=== PATIENT | female | born 1980 | race Caucasian/White ===

== ENCOUNTER 2018-06-01 11:26 | Emergency (ER) | payer MEDICAID ==
[2018-06-01] MEDS ORDERED: SODIUM CHLORIDE 0.9% 1000ML 1,000 ML IV ONE (12:19)
[2018-06-01] MEDS ORDERED: ONDANSETRON HCL 4 MG/2 ML VIAL ONE (12:19)
[2018-06-01 12:30] LABS: BASOPHILS % (AUTO) 0.4 % (0.0-5.0); EOSINOPHILS % (AUTO) 0.1 % (0.0-8.0); HEMATOCRIT 46.9 % (36-48); LYMPHOCYTES % (AUTO) 4.5 % (21.0-51.0); MEAN CORPUSCULAR HEMOGLOBIN 25.6 pg (27.0-33.0); MEAN CORPUSCULAR HGB CONC 32.7 g/dL (32.0-36.0); MEAN CORPUSCULAR VOLUME 78.2 fL (79-99); MONOCYTES % (AUTO) 2.8 % (3.0-13.0); NEUTROPHILS % (AUTO) 92.2 % (40.0-77.0); PLATELET COUNT (AUTO) 285 K/uL (130-400); RED BLOOD CELL COUNT(AUTO) 5.99 MIL/uL (4.00-5.50); RED CELL DISTRIBUTION WIDTH 14.9 % (11.0-15.5)
[2018-06-01 12:31] LABS: HCG,QUAL RESULT NEGATIVE (NEGATIVE)
[2018-06-01 12:32] LABS: APPEARANCE,URINE Clear (CLEAR); BILIRUBIN,URINE Negative (NEGATIVE); COLOR,URINE Yellow (YELLOW); GLUCOSE, URINE (UA) >=1000 mg/dL (NEGATIVE); KETONES,URINE >=80 mg/dL (NEGATIVE); LEUKOCYTE ESTERASE ,URINE Negative (NEGATIVE); NITRATE,URINE Negative (NEGATIVE); OCCULT BLOOD,URINE Small (NEGATIVE); PROTEIN,URINE 300 (NEGATIVE); UROBILINOGEN,URINE 0.2 mg/dL (0.2-1.0)
[2018-06-01 12:38] LABS: RBC,URINE 0-1 /HPF (0-1)
[2018-06-01 12:39] LABS: BACTERIA,URINE Rare /HPF (None Seen)
[2018-06-01 12:40] LABS: SQUAMOUS EPITHELIAL CELL,UR Rare /HPF (0-2)
[2018-06-01 12:46] LABS: ALBUMIN 2.8 g/dL (3.5-5.0); BILIRUBIN,TOTAL 0.5 mg/dL (0.2-1.0); CREATININE 0.8 mg/dL (0.5-1.5); TOTAL PROTEIN, SERUM 7.2 g/dL (6.0-8.3)
[2018-06-01] MEDS ORDERED: KETOROLAC TROMETHAMINE 30MG/ML ONE (12:46)
[2018-06-01] MEDS ORDERED: HYDROMORPHONE 1 MG/1 ML AMP ONE (13:48)
== END 2018-06-01 14:42 | disposition home or self-care (01) ==
LOC: EDH 11:26
DX: N39.0 Urinary tract infection, site not specified (principal); R10.30 Lower abdominal pain, unspecified; E11.65 Type 2 diabetes mellitus with hyperglycemia; Z79.4 Long term (current) use of insulin; Z88.6 Allergy status to analgesic agent; Z88.5 Allergy status to narcotic agent; Z88.0 Allergy status to penicillin; Z88.2 Allergy status to sulfonamides; Z88.8 Allergy status to other drugs, medicaments and biological substances
CPT/HCPCS: 36415; 74176; 80053; 81001; 81025; 85025; 96361; 96374; 96375; 99285; J1170; J1885; J2405; J7030

== ENCOUNTER 2018-09-20 05:43 | Observation (INO) | payer MEDICAID ==
[2018-09-19 16:54] VITALS: BP 121/68
[2018-09-19 16:56] LABS: BASOPHILS % (AUTO) 0.6 % (0.0-5.0); EOSINOPHILS % (AUTO) 3.2 % (0.0-8.0); HEMATOCRIT 42.3 % (36-48); LYMPHOCYTES % (AUTO) 24.4 % (21.0-51.0); MEAN CORPUSCULAR HEMOGLOBIN 25.7 pg (27.0-33.0); MEAN CORPUSCULAR HGB CONC 32.8 g/dL (32.0-36.0); MEAN CORPUSCULAR VOLUME 78.3 fL (79-99); MONOCYTES % (AUTO) 5.9 % (3.0-13.0); NEUTROPHILS % (AUTO) 65.9 % (40.0-77.0); PLATELET COUNT (AUTO) 241 K/uL (130-400); RED CELL DISTRIBUTION WIDTH 14.5 % (11.0-15.5); WHITE BLOOD COUNT (AUTO) 6.8 K/uL (4.8-10.8)
[2018-09-19 17:22] LABS: CREATININE 0.5 mg/dL (0.5-1.5); POTASSIUM 3.7 mmol/L (3.5-5.1)
[~2018-09-20] VITALS: Ht 149.9 cm; Wt 76.8 kg
[2018-09-20] VITALS (23 sets, daily range): BP systolic 99–150; BP diastolic 57–102
[~2018-09-20 05:43] MED LIST: INSLAN SQ; INSNOV SQ; INSU100C6 SQ
[2018-09-20] MEDS ORDERED: SODIUM CHLORIDE 0.9% 1000ML 1,000 ML IV ONE (06:27)
[2018-09-20] MEDS ORDERED: CLINDAMYCIN 600 MG/D5% WATER 50 ML IV ONE (06:27)
[2018-09-20] MEDS ORDERED: LEVOFLOXACIN 500 MG/D5W 100 ML 100 ML ONE (06:46)
[2018-09-20] MEDS: LEVOFLOXACIN 500 MG/D5W 100 ML 100 ML IV PRN ×2 (06:47→07:52)
--- NOTE | 2018-09-20 06:48 | NUR ---
VALUABLES: CLOTHING,, ONE WHITE COLOR COATED NECKLACE, INSULIN PUMP, LANTUS, NOVOLOG, GLASSES AND CELL PHONE GIVEN TO SPOUSE.
[2018-09-20] MEDS ORDERED: SUCCINYLCHOLINE 200MG/10ML SYR ONE (07:33)
[2018-09-20] MEDS ORDERED: ONDANSETRON HCL 4 MG/2 ML VIAL ONE ×2 (07:33→10:31)
[2018-09-20] MEDS ORDERED: LIDOCAINE PF 2% 5ML ABBOJECT ONE ×2 (07:33→07:36)
[2018-09-20] MEDS ORDERED: DEXAMETHASONE SOD PHOSPHATE 10MG/ML 1ML VIAL ONE (07:34)
[2018-09-20] MEDS ORDERED: MIDAZOLAM HCL 1 MG/ML 2ML VIAL ONE (07:34)
[2018-09-20] MEDS ORDERED: FENTANYL CITRATE PF 50 MCG/1 ML 2ML VIAL ONE ×3 (07:34→08:28)
[2018-09-20] MEDS ORDERED: NEOSTIGMINE 5MG/5ML SYR IV ONE ×2 (07:34→09:46)
[2018-09-20] MEDS ORDERED: ROCURONIUM 10MG/1ML SYR 10 MG/ML ML ONE (07:34)
[2018-09-20] MEDS ORDERED: PROPOFOL 10 MG/ML 20ML VIAL IV ONE (07:34)
[2018-09-20] MEDS ORDERED: GLYCOPYRROLATE 1 MG/5 ML SYRINGE ONE ×2 (07:34→10:00)
[2018-09-20] MEDS ORDERED: CLINDAMYCIN 600 MG/D5% WATER 50 ML IV PRN (08:00)
[2018-09-20] MEDS ORDERED: INSULIN HUMULIN R 100 UNIT/ML 3ML ONE (08:35)
[2018-09-20] MEDS ORDERED: PHENYLEPHRINE HCL 10 MG/ML 1ML VIAL IV ONE (09:02)
[2018-09-20] MEDS ORDERED: MEPERIDINE-PF 25 MG/ML SYG ONE (10:36)
[2018-09-20] MEDS ORDERED: METOCLOPRAMIDE 10 MG/2 ML VIAL ONE (10:42)
[2018-09-20] MEDS ORDERED: MEPERIDINE-PF 75 MG/ML SYG ONE (11:12)
[2018-09-20] MEDS ORDERED: IBUPROFEN 600 MG TABLET ONE (11:14)
[2018-09-20] MEDS ORDERED: IBUPROFEN 600 MG TABLET PO PRN (11:15)
[2018-09-20] MEDS ORDERED: DOCUSATE SODIUM 100 MG CAP PO PRN (11:15)
[2018-09-20] MEDS ORDERED: BISACODYL 10 MG SUPP.RECT RC PRN (11:15)
[2018-09-20] MEDS ORDERED: IBUPROFEN 100 MG/5 ML SUSP UDCUP ONE (11:22)
[2018-09-20] MEDS: INSULIN HUMULIN R 100 UNIT/ML 3ML SQ SCH ×3 (12:17→21:00)
[2018-09-20] MEDS ORDERED: HYDROMORPHONE HCL 0.5 MG/0.5 ML ML IVP ONE (13:30)
[2018-09-20] MEDS: HYDROMORPHONE HCL 0.5 MG/0.5 ML ML IVP PRN ×2 (13:35→14:08)
[2018-09-20] MEDS: MEPERIDINE-PF 75 MG/ML SYG IM PRN ×2 (14:59→22:23)
[2018-09-20] MEDS: ONDANSETRON HCL 4 MG/2 ML VIAL IVP PRN ×2 (16:21→22:17)
[2018-09-20] MEDS: SODIUM CHLORIDE 0.9% 1000ML 1,000 ML IV SCH (18:53)
[2018-09-20] MEDS: IBUPROFEN 100 MG/5 ML SUSP UDCUP PO PRN (19:04)
[2018-09-21] MEDS: MEPERIDINE-PF 75 MG/ML SYG IM PRN (01:28)
[2018-09-21] MEDS: SIMETHICONE 80 MG TAB.CHEW PO PRN ×2 (01:28→07:59)
[2018-09-21] MEDS: SODIUM CHLORIDE 0.9% 1000ML 1,000 ML IV SCH (02:37)
[2018-09-21] MEDS ORDERED: IBUPROFEN 100 MG/5 ML SUSP UDCUP PO PRN (03:45)
[2018-09-21 03:57] VITALS: BP 101/63
[2018-09-21] MEDS ORDERED: MEPERIDINE-PF 25 MG/ML SYG ONE (05:36)
[2018-09-21] MEDS ORDERED: MEPERIDINE-PF 50 MG/ML SYG ONE (05:36)
[2018-09-21] MEDS: ONDANSETRON HCL 4 MG/2 ML VIAL IVP PRN (05:41)
[2018-09-21 05:42] LABS: HEMATOCRIT 37.8 % (36-48); MEAN CORPUSCULAR HEMOGLOBIN 26.2 pg (27.0-33.0); MEAN CORPUSCULAR VOLUME 79.4 fL (79-99); PLATELET COUNT (AUTO) 185 K/uL (130-400); RED BLOOD CELL COUNT(AUTO) 4.77 MIL/uL (4.00-5.50); RED CELL DISTRIBUTION WIDTH 14.5 % (11.0-15.5); WHITE BLOOD COUNT (AUTO) 9.2 K/uL (4.8-10.8)
[2018-09-21] MEDS: INSULIN HUMULIN R 100 UNIT/ML 3ML SQ SCH ×2 (06:37→11:30)
[2018-09-21 07:08] VITALS: BP 103/64
[2018-09-21] MEDS ORDERED: HYDROCODONE/ACETAMINOPHEN 5/325 MG TAB PO PRN (07:45)
--- NOTE | 2018-09-21 08:20 | NUR ---
ROUNDS DR. ACEVEDO ROUNDING ON PATIENT. DISCHARGE POC DISCUSSED. QUESTIONS INVITED AND ANSWERED.
[2018-09-21 11:35] VITALS: BP 111/64
[2018-09-21] MEDS: IBUPROFEN 100 MG/5 ML SUSP UDCUP PO PRN (11:39)
--- NOTE | 2018-09-21 13:25 | NUR ---
DISCHARGE INSTRUCTIONS INSTRUCTIONS READ AND EXPLAINED TO PATIENT. PRESCRIPTION FOR PERCOCET AND MOTRIN 800MG HANDED TO PATIENT. QUESTIONS INVITED AND ANSWERED.
--- NOTE | 2018-09-21 13:40 | NUR ---
DISCHARGE PATIENT LEFT UNIT VIA WHEELCHAIR ACCOMPANIED BY . BELONGINGS IN HAND. PERSONAL VEHICLE USED FOR TRANSPORTATION.
== END 2018-09-21 13:40 | disposition home or self-care (01) ==
LOC: DAH 05:43 → WSH 05:44
PROVIDERS: ADMIT Obstetrics & Gynecology; ATTEND Obstetrics & Gynecology
DX: N92.1 Excessive and frequent menstruation with irregular cycle (principal); N73.6 Female pelvic peritoneal adhesions (postinfective); K66.8 Other specified disorders of peritoneum; N94.10 Unspecified dyspareunia; N94.6 Dysmenorrhea, unspecified; G89.29 Other chronic pain; N85.2 Hypertrophy of uterus; R10.2 Pelvic and perineal pain
CPT/HCPCS: 36415 ×2; 58552; 80048; 82948 ×8; 84702; 85025; 85027; 86850; 86900; 86901; 88307; 96372 ×2; 96374; 96375; 96376 ×3; A4215; A4351; A4510; A4600; A4649 ×3; A4930; C1769; G0378 ×32; J0330; J1100; J1170 ×3; J1815 ×3; J1956; J2001 ×2; J2175 ×7; J2250; J2370; J2405 ×5; J2704; J2710 ×2; J2765; J3010 ×3; J3490 ×3; J7030 ×4

== ENCOUNTER 2019-01-07 21:03 | Emergency (ER) | payer MEDICAID ==
[~2019-01-07 21:03] MED LIST changes: -INSLAN SQ; -INSNOV SQ; -INSU100C6 SQ; +INSU100I3 SQ; +INSU3INS3 SQ; +[UNRECOGNIZED DRUG - CODE] MC
[2019-01-07 21:55] LABS: BASOPHILS % (AUTO) 0.8 % (0.0-5.0); EOSINOPHILS % (AUTO) 2.8 % (0.0-8.0); HEMATOCRIT 43.2 % (36-48); LYMPHOCYTES % (AUTO) 18.5 % (21.0-51.0); MEAN CORPUSCULAR HGB CONC 33.3 g/dL (32.0-36.0); MEAN CORPUSCULAR VOLUME 77.9 fL (79-99); MONOCYTES % (AUTO) 3.6 % (3.0-13.0); NEUTROPHILS % (AUTO) 74.3 % (40.0-77.0); PLATELET COUNT (AUTO) 274 K/uL (130-400); RED BLOOD CELL COUNT(AUTO) 5.54 MIL/uL (4.00-5.50); RED CELL DISTRIBUTION WIDTH 15.2 % (11.0-15.5)
[2019-01-07] MEDS ORDERED: DIAZEPAM 5 MG TABLET ONE (21:59)
[2019-01-07 22:06] LABS: CREATININE 1.3 mg/dL (0.5-1.5); POTASSIUM 3.8 mmol/L (3.5-5.1)
[2019-01-07] MEDS ORDERED: METOCLOPRAMIDE 10 MG/2 ML VIAL ONE (23:06)
== END 2019-01-07 23:58 | disposition home or self-care (01) ==
LOC: EDH 21:03
DX: R51 Headache (principal); R29.810 Facial weakness; E11.9 Type 2 diabetes mellitus without complications; Z79.4 Long term (current) use of insulin; Z87.442 Personal history of urinary calculi; Z90.49 Acquired absence of other specified parts of digestive tract; Z90.710 Acquired absence of both cervix and uterus; Z87.891 Personal history of nicotine dependence; Z88.0 Allergy status to penicillin; Z88.5 Allergy status to narcotic agent; Z88.8 Allergy status to other drugs, medicaments and biological substances; Z88.6 Allergy status to analgesic agent
CPT/HCPCS: 36415; 70450; 80048; 84484; 85025; 93005; 96374; 99285; J2765

== ENCOUNTER 2019-01-22 19:57 | Emergency (ER) | payer MEDICAID ==
[2019-01-22] MEDS ORDERED: CEFTRIAXONE SODIUM 1 GM ONE (20:38)
[2019-01-22 20:54] LABS: BASOPHILS % (AUTO) 0.9 % (0.0-5.0); EOSINOPHILS % (AUTO) 0.1 % (0.0-8.0); HEMATOCRIT 42.1 % (36-48); LYMPHOCYTES % (AUTO) 4.8 % (21.0-51.0); MEAN CORPUSCULAR VOLUME 78.9 fL (79-99); MONOCYTES % (AUTO) 4.7 % (3.0-13.0); NEUTROPHILS % (AUTO) 89.5 % (40.0-77.0); NUCLEATED RED BLOOD CELLS 0.1 % (0.0-0.19); PLATELET COUNT (AUTO) 221 K/uL (130-400); RED BLOOD CELL COUNT(AUTO) 5.33 MIL/uL (4.00-5.50); RED CELL DISTRIBUTION WIDTH 15.8 % (11.0-15.5); WHITE BLOOD COUNT (AUTO) 10.8 K/uL (4.8-10.8)
[2019-01-22 21:02] LABS: INR 0.97 (0.85-1.15); PARTIAL THROMBOPLASTIN TIME 26.6 SEC (26.3-35.5); PROTHROMBIN TIME 10.2 SEC (9.6-11.6)
[2019-01-22 21:19] LABS: ALANINE AMINOTRANSFERASE 26 U/L (12-78); ALBUMIN 2.6 g/dL (3.5-5.0); ASPARTATE AMINOTRANSFERASE 10 U/L (10-37); BILIRUBIN,TOTAL 0.5 mg/dL (0.2-1.0); CARBON DIOXIDE 20 mmol/L (21-32); CHLORIDE 97 mmol/L (101-111); CREATINE KINASE, TOTAL 23 U/L (21-232); GLOMERULAR FILTR. RATE CALC 66 mL/min (>60); MYOGLOBIN 24 ng/mL (10-92); POTASSIUM 3.6 mmol/L (3.5-5.1); SODIUM SERUM 131 mmol/L (136-145); TROPONIN I < 0.04 ng/mL (0.00-0.06); UREA NITROGEN, BLOOD 12 mg/dL (7-18)
[2019-01-22 21:29] LABS: GLUCOSE,RANDOM 424 mg/dL (70-105)
[2019-01-22 21:37] LABS: APPEARANCE,URINE Clear (CLEAR); BILIRUBIN,URINE Negative (NEGATIVE); COLOR,URINE Yellow (YELLOW); GLUCOSE, URINE (UA) >=1000 mg/dL (NEGATIVE); KETONES,URINE 40 mg/dL (NEGATIVE); LEUKOCYTE ESTERASE ,URINE Negative (NEGATIVE); NITRATE,URINE Negative (NEGATIVE); OCCULT BLOOD,URINE Trace (NEGATIVE); PH,URINE 5.5 (5.0-8.0); PROTEIN,URINE 300 mg/dL (NEGATIVE); UROBILINOGEN,URINE 0.2 mg/dL (0.2-1.0)
[2019-01-22 21:37] LABS: BAND NEUTROPHILS % (MANUAL) 29 % (0-2); BASOPHILS % (MANUAL) 1 % (0-2); EOSINOPHILS % (MANUAL) 1 % (1-6); LYMPHOCYTES % (MANUAL) 6 % (22-44); MAN.DIFF COMMENT-IMPRESSION MANUAL DIFFERENTIAL; MONOCYTES % (MANUAL) 4 % (2-9); REACTIVE LYMPHOCYTES 4 % (0-0); SEGMENTED NEUTROPHILS % 55 % (40-70)
[2019-01-22 21:38] LABS: PLATELET MORPHOLOGY COMMENT ADEQUATE
[2019-01-22 21:40] LABS: HCG,QUAL RESULT NEGATIVE (NEGATIVE)
[2019-01-22 21:45] LABS: AMPHET/METH SCREEN,URINE NEGATIVE (NEGATIVE); BARBITURATE SCREEN, URINE NEGATIVE (NEGATIVE); BENZODIAZEPINES SCREEN,URINE NEGATIVE (NEGATIVE); CANNABINOID SCREEN,URINE NEGATIVE (NEGATIVE); COCAINE SCREEN,URINE NEGATIVE (NEGATIVE); OPIATE SCREEN,URINE NEGATIVE (NEGATIVE); PHENCYCLIDINE SCREEN,URINE NEGATIVE (NEGATIVE)
[2019-01-22] MEDS ORDERED: ACETAMINOPHEN EXTRA STRENGTH 500 MG TABLET ONE (21:50)
[2019-01-22 22:19] LABS: BASE EXCESS,VENOUS BLOOD GAS -6.3 (-2.0-3.0); HCO3,VENOUS BLOOD GAS 15.4 (21.0-28.0); PCO2,VENOUS BLOOD GAS 23 (32-45); PH,VENOUS BLOOD GAS 7.451 (7.350-7.450)
[2019-01-22 22:22] LABS: BACTERIA,URINE Few /HPF (None Seen); RBC,URINE None Seen /HPF (0-1)
[2019-01-22] MEDS ORDERED: INSULIN HUMULIN R 100 UNIT/ML 3ML ONE (23:21)
== END 2019-01-23 00:02 | disposition home or self-care (01) ==
LOC: EDH 19:57
DX: J10.1 Influenza due to other identified influenza virus with other respiratory manifestations (principal); E10.65 Type 1 diabetes mellitus with hyperglycemia; Z88.6 Allergy status to analgesic agent; Z88.0 Allergy status to penicillin; Z88.8 Allergy status to other drugs, medicaments and biological substances; Z88.1 Allergy status to other antibiotic agents; Z90.49 Acquired absence of other specified parts of digestive tract; Z90.710 Acquired absence of both cervix and uterus; Z87.891 Personal history of nicotine dependence
CPT/HCPCS: 36415; 36600; 71045; 80053; 80305; 81001; 81003; 81025; 82550; 82803; 82948; 83605; 83874; 84484; 85025; 85610; 85730; 87040; 87088; 87804 ×2; 93005; 96361; 96374; 96375; 99285; J0696; J1815

== ENCOUNTER → 2019-02-21 | Outpatient (CLI) | payer MEDICAID | END | disposition home or self-care (01) | LOC: RAH 12:26 | PROVIDERS: ATTEND Family Medicine | DX: S14.109A Unspecified injury at unspecified level of cervical spinal cord, initial encounter (principal); M47.817 Spondylosis without myelopathy or radiculopathy, lumbosacral region; X58.XXXA Exposure to other specified factors, initial encounter; Y93.89 Activity, other specified; Y92.89 Other specified places as the place of occurrence of the external cause; Y99.8 Other external cause status; Z90.49 Acquired absence of other specified parts of digestive tract | CPT/HCPCS: 72100 ==

== ENCOUNTER 2020-02-20 16:10 | Emergency (ER) | payer MEDICAID, OTHER ==
[2020-02-20] MEDS ORDERED: HYDROCODONE/ACETAMINOPHEN 10/325 MG TAB ONE (16:28)
== END 2020-02-20 18:20 | disposition home or self-care (01) ==
LOC: EDH 16:10
DX: S40.012A Contusion of left shoulder, initial encounter (principal); S20.222A Contusion of left back wall of thorax, initial encounter; E11.9 Type 2 diabetes mellitus without complications; Z88.6 Allergy status to analgesic agent; Z88.5 Allergy status to narcotic agent; Z88.0 Allergy status to penicillin; Z88.1 Allergy status to other antibiotic agents; Z88.8 Allergy status to other drugs, medicaments and biological substances; W20.8XXA Other cause of strike by thrown, projected or falling object, initial encounter; Y93.89 Activity, other specified; Y92.812 Truck as the place of occurrence of the external cause; Y99.8 Other external cause status
CPT/HCPCS: 71101; 73030

== ENCOUNTER 2020-04-14 16:48 | Emergency (ER) | payer SELFPAY ==
[2020-04-14] MEDS ORDERED: ONDANSETRON ODT 4 MG TAB ONE (17:22)
[2020-04-14] MEDS ORDERED: HYDROCODONE/ACETAMINOPHEN 10/325 MG TAB ONE (17:25)
[2020-04-14 17:33] LABS: BASOPHILS % (AUTO) 0.3 % (0.0-5.0); EOSINOPHILS % (AUTO) 3.6 % (0.0-8.0); LYMPHOCYTES % (AUTO) 22.8 % (21.0-51.0); MEAN CORPUSCULAR HEMOGLOBIN 27.5 pg (27.0-33.0); MEAN CORPUSCULAR HGB CONC 33.1 g/dL (32.0-36.0); MEAN CORPUSCULAR VOLUME 83.2 fL (79-99); MONOCYTES % (AUTO) 4.5 % (3.0-13.0); NEUTROPHILS % (AUTO) 68.4 % (40.0-77.0); PLATELET COUNT (AUTO) 281 K/uL (130-400); RED BLOOD CELL COUNT(AUTO) 4.69 MIL/uL (4.00-5.50); RED CELL DISTRIBUTION WIDTH 16.1 % (11.0-15.5); WHITE BLOOD COUNT (AUTO) 6.9 K/uL (4.8-10.8)
[2020-04-14 17:42] LABS: CREATININE 0.9 mg/dL (0.5-1.5); POTASSIUM 3.9 mmol/L (3.5-5.1)
[2020-04-14 17:47] LABS: ALBUMIN 2.8 g/dL (3.5-5.0); BILIRUBIN,TOTAL 0.4 mg/dL (0.2-1.0); TOTAL PROTEIN, SERUM 6.8 g/dL (6.0-8.3)
[2020-04-14 17:56] LABS: INR 0.91 (0.85-1.15); PARTIAL THROMBOPLASTIN TIME 24.5 SEC (26.3-35.5); PROTHROMBIN TIME 9.9 SEC (9.6-11.6)
[2020-04-14] MEDS ORDERED: KETOROLAC TROMETHAMINE 30MG/ML ONE (18:48)
== END 2020-04-14 19:05 | disposition home or self-care (01) ==
LOC: EDH 16:48
DX: M79.652 Pain in left thigh (principal); M79.7 Fibromyalgia; L40.50 Arthropathic psoriasis, unspecified; E11.9 Type 2 diabetes mellitus without complications; Z88.0 Allergy status to penicillin; Z88.6 Allergy status to analgesic agent; Z88.8 Allergy status to other drugs, medicaments and biological substances; Z90.710 Acquired absence of both cervix and uterus; Z98.890 Other specified postprocedural states; Z87.891 Personal history of nicotine dependence
CPT/HCPCS: 36415; 73552; 80053; 82550; 85025; 85610; 85730; 93005; 93971; 96374; 99285; J1885

== ENCOUNTER 2020-04-16 16:23 | Emergency (ER) | payer SELFPAY ==
[2020-04-16] MEDS ORDERED: SODIUM CHLORIDE 0.9% 1000ML 1,000 ML IV ONE (16:24)
[2020-04-16] MEDS ORDERED: ONDANSETRON ODT 4 MG TAB ONE (17:10)
[2020-04-16] MEDS ORDERED: HYDROCODONE/ACETAMINOPHEN 10/325 MG TAB ONE (17:10)
[2020-04-16 17:29] LABS: BASOPHILS % (AUTO) 0.4 % (0.0-5.0); EOSINOPHILS % (AUTO) 3.6 % (0.0-8.0); HEMATOCRIT 37.6 % (36-48); LYMPHOCYTES % (AUTO) 15.8 % (21.0-51.0); MEAN CORPUSCULAR HEMOGLOBIN 27.4 pg (27.0-33.0); MONOCYTES % (AUTO) 3.8 % (3.0-13.0); PLATELET COUNT (AUTO) 279 K/uL (130-400); RED BLOOD CELL COUNT(AUTO) 4.53 MIL/uL (4.00-5.50); RED CELL DISTRIBUTION WIDTH 15.9 % (11.0-15.5); WHITE BLOOD COUNT (AUTO) 8.4 K/uL (4.8-10.8)
[2020-04-16 17:38] LABS: CREATININE 1.1 mg/dL (0.5-1.5); POTASSIUM 4.2 mmol/L (3.5-5.1)
[2020-04-16 17:43] LABS: ALBUMIN 2.8 g/dL (3.5-5.0); BILIRUBIN,TOTAL 0.4 mg/dL (0.2-1.0); TOTAL PROTEIN, SERUM 6.8 g/dL (6.0-8.3)
== END 2020-04-16 18:34 | disposition home or self-care (01) ==
LOC: EDH 16:23
DX: M25.552 Pain in left hip (principal); E11.9 Type 2 diabetes mellitus without complications; Z88.0 Allergy status to penicillin; Z88.1 Allergy status to other antibiotic agents; Z88.6 Allergy status to analgesic agent; Z88.8 Allergy status to other drugs, medicaments and biological substances; Z90.710 Acquired absence of both cervix and uterus; Z98.890 Other specified postprocedural states
CPT/HCPCS: 36415; 72192; 73502; 80053; 85025; 99285; J7030

== ENCOUNTER 2021-01-28 15:40 | Emergency (ER) | payer OTHER ==
[2021-01-28 17:09] LABS: BASOPHILS % (AUTO) 0.4 % (0.0-5.0); HEMATOCRIT 38.8 % (36-48); LYMPHOCYTES % (AUTO) 15.5 % (21.0-51.0); MEAN CORPUSCULAR HEMOGLOBIN 24.4 pg (27.0-33.0); MEAN CORPUSCULAR HGB CONC 31.2 g/dL (32.0-36.0); MEAN CORPUSCULAR VOLUME 78.2 fL (79-99); MONOCYTES % (AUTO) 4.8 % (3.0-13.0); NEUTROPHILS % (AUTO) 75.8 % (40.0-77.0); PLATELET COUNT (AUTO) 269 K/uL (130-400); RED BLOOD CELL COUNT(AUTO) 4.96 MIL/uL (4.00-5.50); RED CELL DISTRIBUTION WIDTH 14.2 % (11.0-15.5); WHITE BLOOD COUNT (AUTO) 9.9 K/uL (4.8-10.8)
[2021-01-28 17:14] LABS: APPEARANCE,URINE Clear (CLEAR); BILIRUBIN,URINE Negative (NEGATIVE); COLOR,URINE Yellow (YELLOW); GLUCOSE, URINE (UA) >=1000 mg/dL (NEGATIVE); KETONES,URINE Negative (NEGATIVE); LEUKOCYTE ESTERASE ,URINE Trace (NEGATIVE); NITRATE,URINE Negative (NEGATIVE); OCCULT BLOOD,URINE Trace (NEGATIVE); PROTEIN,URINE 300 mg/dL (NEGATIVE); UROBILINOGEN,URINE 0.2 mg/dL (0.2-1.0)
[2021-01-28] MEDS ORDERED: HALOPERIDOL LACTATE 5 MG/ML VIAL ONE (17:25)
[2021-01-28] MEDS ORDERED: BENZTROPINE MESYLATE 0.5 MG TAB ONE (17:26)
[2021-01-28 17:27] LABS: HCG,QUAL RESULT NEGATIVE (NEGATIVE)
[2021-01-28 17:30] LABS: ALBUMIN 2.9 g/dL (3.5-5.0); AMPHET/METH SCREEN,URINE NEGATIVE (NEGATIVE); BARBITURATE SCREEN, URINE NEGATIVE (NEGATIVE); BENZODIAZEPINES SCREEN,URINE NEGATIVE (NEGATIVE); BILIRUBIN,TOTAL 0.2 mg/dL (0.2-1.0); CANNABINOID SCREEN,URINE NEGATIVE (NEGATIVE); COCAINE SCREEN,URINE NEGATIVE (NEGATIVE); OPIATE SCREEN,URINE NEGATIVE (NEGATIVE); PHENCYCLIDINE SCREEN,URINE NEGATIVE (NEGATIVE); POTASSIUM 4.4 mmol/L (3.5-5.1); TOTAL PROTEIN, SERUM 7.1 g/dL (6.0-8.3)
[2021-01-28 18:07] LABS: BACTERIA,URINE Rare /HPF (None Seen); SQUAMOUS EPITHELIAL CELL,UR Few /HPF (0-2); YEAST,URINE BUDDING Rare /HPF (None Seen)
== END 2021-01-28 18:52 | disposition home or self-care (01) ==
LOC: EDH 15:40
DX: R10.9 Unspecified abdominal pain (principal); E11.9 Type 2 diabetes mellitus without complications; Z88.1 Allergy status to other antibiotic agents; Z88.0 Allergy status to penicillin; Z88.6 Allergy status to analgesic agent; Z88.8 Allergy status to other drugs, medicaments and biological substances; Z90.49 Acquired absence of other specified parts of digestive tract; Z98.890 Other specified postprocedural states
CPT/HCPCS: 36415; 80053; 80305; 81001; 81025; 83690; 85025; 87088; 96372; 99283; J1630

== ENCOUNTER → 2024-03-07 | Outpatient (CLI) | payer OTHER | END | disposition home or self-care (01) | LOC: OIH 15:11 | PROVIDERS: ATTEND Internal Medicine | DX: M43.22 Fusion of spine, cervical region (principal) | CPT/HCPCS: 72040 ==